=== PATIENT | female | born 1990 | race Caucasian/White ===

== ENCOUNTER → 2022-06-08 13:55 | Outpatient (CLI) | payer BC, SELFPAY ==
--- NOTE | ~2022-06-08 | XR_ITS ---
EXAM: XR knee RT min 4V DATE: 06/08/2022 15:20 HISTORY: Pain of right knee joint . COMPARISON: None available. FINDINGS: Normal mineralization. No fracture or dislocation. No lytic or blastic lesion. Mild medial joint space narrowing. Mild tricompartmental osteophytosis. Small volume joint effusion. No erosion or periosteal change. Soft tissues within normal limits. IMPRESSION: Mild tricompartmental osteoarthritic change. Reviewed, dictated and finalized at location K.
== END ==
PROVIDERS: Visit Provider Physician Assistant
DX: M17.11 Unilateral primary osteoarthritis, right knee (principal)
CPT/HCPCS: 73564